=== PATIENT | male | born 2000 | race Caucasian/White ===

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

== ENCOUNTER 2022-05-13 00:11 | Emergency (ER) | payer SELFPAY ==
--- NOTE | ~2022-05-13 | XR_ITS ---
EXAMINATION: XR chest 2V 05/13/2022 00:39 INDICATION: Chest pain PROCEDURE: 2 view chest COMPARISON: 11/19/2018 FINDINGS: The lungs are clear. The cardiomediastinal silhouette is within normal limits. There are no pleural effusions. There is no pneumothorax suspected. IMPRESSION: 1: NO ACUTE CARDIOPULMONARY DISEASE. Reviewed, dictated and finalized at location A.
--- NOTE | 2022-05-13 00:14 | ECG_ITS ---
Measurements Intervals [place] Rate: 100 P: 84 [place]: 122 QRS: 71 QRSD: 86 T: 54 QT: 331 QTc: 428 Interpretive Statements SINUS TACHYCARDIA NONSPECIFIC T-WAVE ABNORMALITY ABNORMAL RHYTHM ECG COMPARED TO ECG 10/29/2019 10:43:05 NO SIGNIFICANT CHANGES Electronically Signed On 05-13-2022 17:55:39 CDT by Ashley Madera M.D.
[2022-05-13 00:20] VITALS: BP 132/67; PULSE 92; RESP 18; TEMP 36.4; O2SAT 100
[2022-05-13 00:32] LABS: Basophils Absolute Auto 0.1 K/mm3 (0.0-0.1); Basophils Percent Auto 0.7 % (0.2-1.2); Eosinophils Absolute Auto 0.2 K/mm3 (0-0.3); Eosinophils Percent Auto 2.4 % (0-4.4); Hematocrit 46.7 % (42.0-52.0); Hemoglobin 16.4 g/dL (14.0-18.0); Immature Granulocyte Absolute 0.02 K/mm3 (0.00-0.031); Immature Granulocyte Percent A 0.3 % (0-0.5); Lymphocytes Absolute Auto 2.41 K/mm3 (0.9-3.2); Lymphocytes Percent Auto 33.6 % (18.3-44.2); Mean Corpuscular HGB Conc 35.1 g/dl (32-36); Mean Corpuscular Hemoglobin 30.2 pg (26-34); Mean Platelet Volume 9.5 fl (7.4-10.4); Monocytes Absolute Auto 0.4 K/mm3 (0.1-0.6); Monocytes Percent Auto 5.7 % (2.6-8.5); Neutrophils Absolute Auto 4.1 K/mm3 (1.3-6.7); Neutrophils Percent Auto 57.3 % (45.5-73.1); Platelet Count Result 244 k/mm3 (150-375); Red Blood Count 5.43 M/mm3 (4.6-6.20); Red Cell Distribution Width 12.1 % (11.5-14.5); White Blood Count 7.2 K/mm3 (4.5-10.0)
[2022-05-13 00:41] LABS: Alanine Aminotransferase 106 U/L (6-50); Alkaline Phosphatase 44 U/L (38-126); Anion Gap 9 mmol/L (8-16); Aspartate Amino Transferase 179 U/L (17-59); Bilirubin,Total 1.3 mg/dL (0.2-1.3); Blood Urea Nitrogen 21 mg/dL (9-20); Calcium 9.5 mg/dL (8.4-10.2); Carbon Dioxide 25 mmol/L (22-30); Chloride 106 mmol/L (98-107); Estimated Glomerular Filt Rate > 60; Glucose 126 mg/dL (65-110); Lipase 81 U/L (23-300); Potassium 3.6 mmol/L (3.4-5.0); Sodium 140 mmol/L (137-145)
[2022-05-13 00:46] LABS: Prothrombin Time 13.1 Seconds (11.1-14.7)
[2022-05-13 00:47] LABS: Partial Thromboplastin Time 35.7 SECONDS (22.3-36.8)
[2022-05-13 00:52] LABS: Troponin I < 0.012 ng/mL (0.000-0.034)
--- NOTE | 2022-05-13 02:46 | ED.CHESTPAIN ---
HPI - Chest Pain General Chief Complaint: Chest Pain Stated Complaint: cp/nv after being stopped by pd Time Seen by Provider: 05/13/22 02:40 History of Present Illness HPI narrative: 22-year-old male presenting to the emergency department for evaluation of epigastric pain. Patient reports he has had persistent nausea vomiting over the course of the last week. Patient states that after he got pulled over he had acute worsening of his epigastric/chest pain. Patient denies any radiation of the pain back neck or arms. Patient denies any prior history of gastritis. Patient denies any previous surgical history. Patient states he does not take a lot of ibuprofen but denies any alcohol intake. Related Data Allergies Allergy/AdvReac Type Severity Reaction Status Date / Time No Known Allergies Allergy Unknown Verified 11/13/21 02:09 Review of Systems Review of Systems: CONSTITUTIONAL: Denies fever, chills, or sweats. EYES: Denies visual changes, redness, or discharge. ENT: Denies rhinorrhea, congestion, sore throat, or otalgia. CARDIOVASCULAR: Denies chest pain, palpitations, or edema. RESPIRATORY: Denies cough or dyspnea. GASTROINTESTINAL: Epigastric abdominal pain with associated nausea and vomiting GENITOURINARY: Denies dysuria or hematuria. SKIN: Denies rash or itching. MUSCULOSKELETAL: Denies back pain, joint pain, or myalgia. NEUROLOGIC: Denies headache, numbness, or weakness. PMFSH Past Medical History Medical History (Updated 05/13/22 @ 04:14 by Lokesh South MD) Arm fracture, left No pertinent past medical history Surgical History Surgical History (Updated 10/29/19 @ 12:22 by Maryann Crooks) No significant past surgical history Family History Family History (Updated 06/11/16 @ 23:19 by DOCTOR UNKNOWN) Father Hypertension Sibling Family history of malignant neoplasm of breast in first degree relative Mother Family history of malignant neoplasm of esophagus Grandparent Family history of type 2 diabetes mellitus Social History Social History Smoking status: Current some day smoker Alcohol intake: current Gender identity (if verbalized by the patient): Male Exam Narrative: APPEARANCE: Well appearing, no pain, no distress, well-nourished. HEAD: normocephalic, atraumatic. EYES: PERRLA/EOMI, conjunctivae clear. NOSE: Normal no drainage EARS:TMS clear with good light reflex. THROAT: Pharynx clear, no exudate. NECK: Supple. No adenopathy, no masses. RESPIRATORY: Airway patent, respirations nonlabored. Clear to auscultation bilaterally, no rales, rhonchi, wheezing. CARDIOVASCULAR: Regular rate and rhythm without murmurs rubs or gallops. ABDOMINAL: Soft, normal bowel sounds, nondistended, mild epigastric tenderness to palpation MUSCULOSKELETAL: Moves all extremities. Strength/ROM intact, No edema, No calf tenderness. NEURO: Alert. Cranial nerves II through XII intact. Grossly intact SKIN: Warm, dry. Normal Color Course Course Emergency Course: Patient is little troponins were negative. Patient EKG showed no evidence of acute STEMI. Chest x-ray showed no acute cardiopulmonary normality. Patient did feel improved with treatment. Patient was discharged to home. Patient was comfortable with the plan for discharge and close follow-up. Suspect epigastric and GI etiology for the patient's symptoms. Vital Signs Vital signs: Vital Signs Temperature 97.5 F L 05/13/22 00:20 Pulse Rate 92 05/13/22 00:20 Respiratory Rate 18 05/13/22 00:20 Blood Pressure 132/67 05/13/22 00:20 Pulse Oximetry 100 05/13/22 00:20 Oxygen Delivery Room Air 05/13/22 00:20 Temperature 97.5 F L 05/13/22 00:20 Pulse Rate 92 05/13/22 00:20 Respiratory Rate 18 05/13/22 00:20 Blood Pressure 132/67 05/13/22 00:20 Pulse Oximetry 100 05/13/22 00:20 Oxygen Delivery Room Air 05/13/22 00:20 MDM - Chest Pain Lab Data Attesta
[2022-05-13 04:04] LABS: Troponin I < 0.012 ng/mL (0.000-0.034)
[2022-05-13] MEDS: BELLADONNA ALK/PHENOB ELIX 10 ML, MAG HYDROX/ALUMINUM HYD/SIMETH 30 ML, LIDOCAINE HCL 2... PO (04:22)
[2022-05-13] MEDS: PANTOPRAZOLE 40 MG TABLET PO (04:23)
[2022-05-13 04:34] VITALS: BP 129/74; PULSE 75; RESP 18; O2SAT 98
== END 2022-05-13 04:37 | disposition home or self-care (01) ==
PROVIDERS: Emergency Provider Emergency Medicine; PCP Family Medicine
DX: R10.13 Epigastric pain (principal); F17.200 Nicotine dependence, unspecified, uncomplicated; R00.0 Tachycardia, unspecified; R94.31 Abnormal electrocardiogram [ECG] [EKG]
CPT/HCPCS: 36415; 71046; 80053; 83690; 84484; 85025; 85610; 85730; 93005; 99284; A9270

== ENCOUNTER 2022-08-12 19:12 | Emergency (ER) | payer SELFPAY ==
--- NOTE | ~2022-08-12 | XR_ITS ---
EXAMINATION: XR chest 2V DATE: 08/12/2022 22:24 INDICATION: Chest pain and epigastric pain. TECHNIQUE: PA and lateral views of the chest were obtained. COMPARISON: Chest radiograph dated 05/13/2022 FINDINGS: The lungs remain clear with no focal airspace opacities, pulmonary edema, pleural effusion or pneumot horax. The cardiomediastinal silhouette is normal. Visualized bones and soft tissues are unremarkable . IMPRESSION: 1. Normal chest radiograph. Reviewed, dictated and finalized at location A. IMPRESSION: 1. Normal chest radiograph.
--- NOTE | ~2022-08-12 | CT_ITS ---
EXAMINATION: CT abdomen pelvis wo con DATE: 08/12/2022 23:13 INDICATION: Lower abdominal pain, nausea TECHNIQUE: Computed tomography (CT) of the abdomen and pelvis was performed without intravenous contr ast. Automated exposure control and iterative reconstruction technique were employed. Exam dose: 593 .38 mGy-cm total exam DLP. COMPARISON: 04/19/2009 CT abdomen pelvis FINDINGS: The lung bases are clear. Normal heart size. No pericardial or pleural effusion. Liver, spleen, pancreas, and adrenal glands and kidneys are unremarkable. The gallbladder is contract ed. No bile duct or pancreatic duct dilatation. No urinary tract calculus or hydroureteronephrosis. The urinary bladder and prostate gland are unrema rkable. Normal caliber of the abdominal aorta. No intraperitoneal or retroperitoneal or pelvic mass lesion or adenopathy or ascites. Normal appendix. No bowel obstruction, bowel wall thickening, pneumatosis or intraperitoneal free air . There are multiple nonenlarged mesenteric lymph nodes which may be due to mesenteric lymphadenitis. Included, skeletal structures are unremarkable. IMPRESSION: Multiple nonenlarged mesenteric lymph nodes, which may be due to mesenteric lymphadeniti s Normal appendix Reviewed, dictated and finalized at Location A. Reviewed, dictated and finalized at location A. IMPRESSION: Multiple nonenlarged mesenteric lymph nodes, which may be due to m esenteric lymphadenitis Normal appendix
[2022-08-12 19:26] VITALS: BP 122/53; PULSE 68; RESP 16; TEMP 35.8; O2SAT 99
--- NOTE | 2022-08-12 21:35 | ECG_ITS ---
Measurements Intervals [place] Rate: 63 P: 66 [place]: 117 QRS: 67 QRSD: 90 T: 50 QT: 418 QTc: 431 Interpretive Statements SINUS RHYTHM WITH MARKED SINUS ARRHYTHMIA WITH SHORT [place] INTERVAL BASELINE WANDER- V3 BORDERLINE ECG COMPARED TO ECG 05/13/2022 00:19:01 SINUS RHYTHM NOW PRESENT SINUS ARRHYTHMIA NOW PRESENT Electronically Signed On 08-13-2022 7:07:26 CDT by Austin Whipple D.O.
--- NOTE | 2022-08-12 21:48 | ED.ABDPAIN ---
HPI - Abdominal Pain General Chief Complaint: Abdominal Pain Stated Complaint: ABD PAIN AFTER ARREST Time Seen by Provider: 08/12/22 21:15 History of Present Illness HPI narrative: Patient is a 22-year-old male here for evaluation of abdominal pain and chest pain. Patient states the pain is lower in nature, is crampy, rated as a 10 out of 10. He has not attempted any medication for his pain. Additionally noting any chest pain and shortness of breath for the past 3 hours. Noted that patient's symptoms came on after he was arrested today. His last bowel movement was yesterday and he states that it was liquidy but nonbloody. He denies any nausea, vomiting, fevers, leg swelling. Denies history of similar pain in the past. Related Data Allergies Allergy/AdvReac Type Severity Reaction Status Date / Time No Known Allergies Allergy Unknown Verified 11/13/21 02:09 Review of Systems Review of Systems: Gen: Denies fevers or chills Eyes: Denies eye pain or visual change ENT: Denies congestion Respiratory: Denies shortness of breath or cough CV: Reports chest pain. GI: Reports abdominal pain. Denies nausea, emesis or diarrhea : denies burning, urgency, frequency or hematuria Musculoskeletal: Denies back pain or muscle pain Neuro: Denies numbness, tingling, weakness or focal weakness Skin: Denies rash Except as documented, all other systems reviewed and negative PMFSH Past Medical History Medical History (Updated 08/12/22 @ 23:51 by Yvonne Black PA-C) Arm fracture, left No pertinent past medical history Surgical History Surgical History No significant past surgical history Family History Family History (Updated 06/11/16 @ 23:19 by DOCTOR UNKNOWN) Father Hypertension Sibling Family history of malignant neoplasm of breast in first degree relative Mother Family history of malignant neoplasm of esophagus Grandparent Family history of type 2 diabetes mellitus Social History Social History Smoking status: Current some day smoker Alcohol intake: current Gender identity (if verbalized by the patient): Male Exam Narrative: APPEARANCE: Well appearing, no pain in distress, well-nourished. Head: Normocephalic and atraumatic. EYES: PERRLA/EOMI, conjunctivae clear NOSE: No nasal drainage EARS: External ear normal in appearance THROAT: Oropharynx is clear. Mucous membranes are moist. NECK: Supple. No adenopathy, no masses. RESPIRATORY: Airway patent, respirations nonlabored. Clear to auscultation bilaterally, no rales, rhonchi, wheezing. CARDIOVASCULAR: tender to palpation over chest wall. Regular rate and rhythm without murmurs, rubs, or gallops. ABDOMINAL: Tender to palpation in lower abdomen. Normoactive bowel sounds. Soft, nondistended. No rebound tenderness or guarding. MUSCULOSKELETAL: Extremities are warm and well-perfused. Moves all extremities well. No edema. NEURO: Normal speech. No focal neurologic deficits. SKIN: Skin is warm and dry. No rashes. PSYCHIATRIC: Normal affect/mood. Course Vital Signs Vital signs: Vital Signs Temperature 96.5 F L 08/12/22 19:26 Pulse Rate 68 08/12/22 19:26 Respiratory Rate 16 08/12/22 19:26 Blood Pressure 122/53 L 08/12/22 19:26 Pulse Oximetry 99 08/12/22 19:26 Temperature 96.5 F L 08/12/22 19:26 Pulse Rate 90 08/13/22 00:17 Respiratory Rate 18 08/13/22 00:17 Blood Pressure 125/62 08/13/22 00:30 Pulse Oximetry 100 08/13/22 00:30 MDM - Abdominal Pain MDM Narrative Medical decision making narrative: Patient is a 22 year old male here for evaluation of chest pain x 4 hours and abdominal pain x 3 days. Here, he is non-toxic appearing with normal vital signs. He is tender to palpation in his lower abdomen and his upper chest wall. EKG and troponin non-ischemic. CXR clear. Lipase nl. No leukocytosis or
[2022-08-12 21:52] LABS: Basophils Absolute Auto 0.1 K/mm3 (0.0-0.1); Basophils Percent Auto 1.2 % (0.2-1.2); Eosinophils Absolute Auto 0.2 K/mm3 (0-0.3); Eosinophils Percent Auto 3.1 % (0-4.4); Hematocrit 45.6 % (42.0-52.0); Hemoglobin 15.6 g/dL (14.0-18.0); Immature Granulocyte Absolute 0.02 K/mm3 (0.00-0.031); Immature Granulocyte Percent A 0.3 % (0-0.5); Lymphocytes Absolute Auto 1.97 K/mm3 (0.9-3.2); Lymphocytes Percent Auto 33.5 % (18.3-44.2); Mean Corpuscular HGB Conc 34.2 g/dl (32-36); Mean Corpuscular Hemoglobin 30.7 pg (26-34); Mean Corpuscular Volume 89.8 fl (80-100); Mean Platelet Volume 9.3 fl (7.4-10.4); Monocytes Absolute Auto 0.4 K/mm3 (0.1-0.6); Monocytes Percent Auto 7.1 % (2.6-8.5); Neutrophils Absolute Auto 3.2 K/mm3 (1.3-6.7); Neutrophils Percent Auto 54.8 % (45.5-73.1); Platelet Count Result 223 k/mm3 (150-375); Red Blood Count 5.08 M/mm3 (4.6-6.20); Red Cell Distribution Width 12.1 % (11.5-14.5); White Blood Count 5.9 K/mm3 (4.5-10.0)
[2022-08-12 22:03] LABS: Alanine Aminotransferase 58 U/L (6-50); Albumin Level 4.4 g/dL (3.5-5.1); Alkaline Phosphatase 42 U/L (38-126); Anion Gap 12 mmol/L (8-16); Aspartate Amino Transferase 46 U/L (17-59); Bilirubin,Total 1.5 mg/dL (0.2-1.3); Blood Urea Nitrogen 19 mg/dL (9-20); Carbon Dioxide 29 mmol/L (22-30); Chloride 101 mmol/L (98-107); Estimated CRCL calculation 113 ml/min; Estimated Glomerular Filt Rate > 60; Glucose 92 mg/dL (65-110); Lipase 60 U/L (23-300); Potassium 3.9 mmol/L (3.4-5.0); Sodium 142 mmol/L (137-145)
[2022-08-12 22:14] LABS: Troponin I < 0.012 ng/mL (0.000-0.034)
[2022-08-12] MEDS: BELLADONNA ALK/PHENOB ELIX 10 ML, MAG HYDROX/ALUMINUM HYD/SIMETH 30 ML, LIDOCAINE HCL 2... PO (23:55)
[2022-08-13 00:17] VITALS: PULSE 90; RESP 18; O2SAT 100
[2022-08-13 00:30] VITALS: BP 125/62; O2SAT 100
== END 2022-08-13 00:43 ==
PROVIDERS: Physician Assistant; Emergency Provider Emergency Medicine; PCP Family Medicine
DX: R07.89 Other chest pain (principal); F17.200 Nicotine dependence, unspecified, uncomplicated; R94.31 Abnormal electrocardiogram [ECG] [EKG]
CPT/HCPCS: 36415; 71046; 74176; 80053; 83690; 84484; 85025; 93005; 99284; A9270

== ENCOUNTER 2023-03-23 09:07 | Emergency (ER) | payer MEDICAID, SELFPAY ==
--- NOTE | ~2023-03-23 | CT_ITS ---
EXAMINATION: CT cervical spine wo con DATE: 03/23/2023 09:39 INDICATION: Head injury TECHNIQUE: Computed tomography (CT) of the cervical spine was performed without intravenous contrast. Automated exposure control and iterative reconstruction technique were employed. The dose-length pro duct was 484.83 mGy-cm. COMPARISON: None FINDINGS: Likely positional straightening of the normal cervical lordosis. No spondylolisthesis or facet sublux ation. Vertebral body and disc heights are normal. Multilevel mild bilateral cervical uncovertebral o steoarthritis. Contributes to minimal neural foraminal stenosis on the bilaterally at C3-C4 and on th e left at C4-C5. No central canal stenosis. Mild cervical facet osteoarthritis on the right at C2-C3 with minimal facet osteoarthritis at a few additional cervical levels on the left and right. Cervical soft tissues are unremarkable. Bilateral apices of lungs are clear. IMPRESSION: 1. Minimal to mild cervical facet and uncovertebral osteoarthritis. No acute osseous abnormality . Reviewed, dictated and finalized at location A. IMPRESSION: 1. Minimal to mild cervical facet and uncovertebral osteoarthritis. No acute os seous abnormality .
--- NOTE | ~2023-03-23 | CT_ITS ---
EXAMINATION: CT BRAIN W/O DATE: 03/23/2023 09:39 INDICATION: Head injury. TECHNIQUE: Computed tomography (CT) of the head was performed without intravenous contrast. The dose- length product was 605.33 mGy-cm. Automated exposure control and iterative reconstruction technique w ere employed. COMPARISON: CT dated 07/12/2019 FINDINGS: Normal brain parenchymal volume for age. Normal marquez-white differentiation. No acute intrac ranial hemorrhage, infarction, mass or mass effect. No ventriculomegaly or midline shift. Midline sagittal images demonstrate a normal corpus callosum, c raniovertebral junction and sella turcica. Basilar cisterns are patent. Paranasal sinuses and mastoids are pneumatized. No depressed skull fractures. IMPRESSION: 1. No acute intracranial abnormality. Reviewed, dictated and finalized at location B.
[2023-03-23 09:12] VITALS: BP 153/80; PULSE 107; RESP 18; TEMP 36.4; O2SAT 98
[2023-03-23 09:21] VITALS: BP 153/80; PULSE 107; RESP 18; TEMP 36.4; O2SAT 98
--- NOTE | 2023-03-23 09:22 | ED.GENADULT ---
HPI - General Adult General Chief complaint: Head Injury Stated complaint: tackled by police Time Seen by Provider: 03/23/23 09:08 History of Present Illness HPI narrative: 23-year-old male presents emergency room in custody of law enforcement for evaluation of a head injury. Patient was deviating law enforcement and was eventually detained. In the process of being detained. Patient struck his head on the ground. Denies any LOC or altered mental status. Denies any nausea or vomiting. Denies spine tenderness. On arrival, patient is able to respond to questions appropriately. No other injuries. Related Data Allergies Allergy/AdvReac Type Severity Reaction Status Date / Time No Known Allergies Allergy Unknown Verified 03/23/23 09:18 Review of Systems Review of Systems: CONSTITUTIONAL: Denies fever, chills, or sweats. EYES: Denies visual changes, redness, or discharge. ENT: Denies rhinorrhea, congestion, sore throat, or otalgia. CARDIOVASCULAR: Denies chest pain, palpitations, or edema. RESPIRATORY: Denies cough or dyspnea. GASTROINTESTINAL: Denies abdominal pain, nausea, vomiting, or diarrhea. GENITOURINARY: Denies dysuria or hematuria. SKIN: Denies rash or itching. MUSCULOSKELETAL: Denies back pain, joint pain, or myalgia. NEUROLOGIC: Denies headache, numbness, dizziness, or weakness. PSYCHIATRIC: Denies anxiety or depression. PMFSH Past Medical History Medical History Arm fracture, left No pertinent past medical history Surgical History Surgical History No significant past surgical history Family History Family History Father Hypertension Sibling Family history of malignant neoplasm of breast in first degree relative Mother Family history of malignant neoplasm of esophagus Grandparent Family history of type 2 diabetes mellitus Social History Social History Smoking status: Current some day smoker Alcohol intake: current Gender identity (if verbalized by the patient): Male Exam Narrative: GENERAL: Well-appearing, well-nourished, no physical limitations, and in no acute distress. HEAD: Normocephalic, atraumatic. Tenderness to the forehead EYES: Conjunctivae normal, PERRLA and EOMI. ENT: External nose normal, Nares clear, no rhinorrhea or epistaxis. Mucous membranes moist. Oropharynx without tonsillar hypertrophy exudate or other lesions. External ears normal, bilateral TMs normal bilaterally NECK: Supple. CHEST: Clear to auscultation. No respiratory distress. No wheezes rales or rhonchi. No tenderness. HEART: Regular rate and rhythm. No murmur heard. Normal peripheral pulses. BACK: No cervical tenderness, step-offs, bony abnormality; FROM EXTREMITIES: Normal range of motion. No edema. No clubbing or cyanosis SKIN: Warm, dry, no rash. No noted wounds NEURO: No focal deficits. Alert and oriented x3. MAEW. CN's II-XI intact bilaterally, normal gait PSYCH: Cooperative. Normal mood and affect. Course Vital Signs Vital signs: Vital Signs Temperature 36.4 C 03/23/23 09:12 Pulse Rate 107 H 03/23/23 09:12 Respiratory Rate 18 03/23/23 09:12 Blood Pressure 153/80 H 03/23/23 09:12 Pulse Oximetry 98 03/23/23 09:12 Oxygen Delivery Room Air 03/23/23 09:12 Temperature 36.4 C 03/23/23 09:21 Pulse Rate 107 H 03/23/23 09:21 Respiratory Rate 18 03/23/23 09:21 Blood Pressure 153/80 H 03/23/23 09:21 Pulse Oximetry 98 03/23/23 09:21 Oxygen Delivery Room Air 03/23/23 09:12 Medical Decision Making Vital Signs Vital Signs: Vital Signs Temperature 36.4 C 03/23/23 09:12 Pulse Rate 107 H 03/23/23 09:12 Respiratory Rate 18 03/23/23 09:12 Blood Pressure 153/80 H 03/23/23 09:12 Pulse Oximetry 98 03/23/23 09:12 Oxygen De
[2023-03-23 10:24] VITALS: BP 172/67; PULSE 106; RESP 18; O2SAT 100
== END 2023-03-23 10:27 ==
PROVIDERS: Emergency Provider Nurse Practitioner Family; PCP Family Medicine
DX: S09.90XA Unspecified injury of head, initial encounter (principal); F17.200 Nicotine dependence, unspecified, uncomplicated; Y35.813A Legal intervention involving manhandling, suspect injured, initial encounter; M47.812 Spondylosis without myelopathy or radiculopathy, cervical region
CPT/HCPCS: 70450; 72125; 99284

== ENCOUNTER 2023-08-11 23:12 | Emergency (ER) | payer OTHER, SELFPAY ==
[2023-08-11 23:13] VITALS: BP 103/52; PULSE 79; RESP 18; TEMP 36.2; O2SAT 99
== END 2023-08-12 01:51 | disposition left against medical advice (07) ==
PROVIDERS: PCP Family Medicine
DX: K04.7 Periapical abscess without sinus (principal)
CPT/HCPCS: 99199

== ENCOUNTER 2023-08-12 14:37 | Emergency (ER) | payer OTHER, SELFPAY ==
[2023-08-12 14:50] VITALS: BP 134/77; PULSE 121; RESP 18; TEMP 36.6; O2SAT 100
--- NOTE | 2023-08-12 15:06 | ED.DENTAL ---
HPI - Dental/Oral General Chief complaint: Dental/Oral Stated complaint: mouth pain Time Seen by Provider: 08/12/23 15:10 Source: patient, RN notes reviewed and old records reviewed Mode of arrival: ambulatory Limitations: no limitations History of Present Illness HPI Narrative: 23-year-old male presents to the [facility] with complaints of mouth pain and redness and swelling to the left dorsal aspect of foot. States able started a couple of days ago. No treatment prior to arrival Related Data Allergies Allergy/AdvReac Type Severity Reaction Status Date / Time No Known Allergies Allergy Unknown Verified 03/23/23 09:18 Review of Systems Review of Systems: All systems reviewed & are unremarkable except as noted in HPI and below Constitutional: Constitutional: Reports no additional constitutional complaints Eyes: Eyes: Reports no additional eye complaints ENT: Reports as per HPI and Reports dental pain Cardiovascular: Cardiovascular: Reports no additional cardiovascular complaints, Denies chest pain and Denies dyspnea Respiratory: Respiratory: Reports no additional respiratory complaints, Denies chest congestion, Denies cough and Denies dyspnea Gastrointestinal: Gastrointestinal: Reports no additional gastrointestinal complaints, Denies abdominal pain, Denies nausea and Denies vomiting Musculoskeletal: Musculoskeletal: Reports no additional musculoskeletal complaints Integumentary/Breasts: Skin/Breast: Reports as per HPI Neurologic: Reports system reviewed and no additional complaints, except as documented Psychiatric: Psychiatric: Reports no additional psychiatric complaints Allergic/Immunologic: Allergic/Immunologic: Reports no additional allergic/immunologic complaints [facility] Past Medical History Medical History Arm fracture, left No pertinent past medical history Surgical History Surgical History No significant past surgical history Family History Family History Father Hypertension Sibling Family history of malignant neoplasm of breast in first degree relative Mother Family history of malignant neoplasm of esophagus Grandparent Family history of type 2 diabetes mellitus Social History Social History Smoking status: Current some day smoker Alcohol intake: current Gender identity (if verbalized by the patient): Male Comments At the time of my signature, I reviewed and agree with the nursing past medical, surgical, social, and family history. There is no relevant family history pertinent to the patient complaint. Exam Const: General: cooperative, healthy appearing, comfortable, no acute distress, well developed, alert, poor hygiene and well nourished Nutritional Appearance: well nourished Orientation/consciousness: patient oriented x3 Limitations: no limitations HENMT: Head: normal to inspection Ears: hearing grossly normal bilaterally and external ears normal Face/Nose/Sinus: Normal external nose present, Normal nares present, Normal nasal mucous membranes and turbinates present, normal facial exam and face symmetric Face and sinus: normal facial exam and face symmetric Mouth: Yes Normal oral and palatal mucosa present, Yes lip normal and Yes moist mucous membranes Teeth and gingiva: abnormal tooth and associated gingiva (Right lower gingiva mild swelling noted posterior molars with increased shayne) and fair dentition Throat: posterior oropharynx normal and uvula midline Eyes: General: appearance normal, both eyes and all related structures Alignment and Position: alignment normal Periorbital: periorbital findings normal Pupils: Equal, round and reactive pupils present EOM: EOMs intact bilaterally Neck: Neck: normal visual inspection, full ROM, no lymphadenopathy and no me
== END 2023-08-12 15:28 | disposition home or self-care (01) ==
PROVIDERS: Emergency Provider Nurse Practitioner; PCP Family Medicine
DX: K04.7 Periapical abscess without sinus (principal); L03.116 Cellulitis of left lower limb; F17.210 Nicotine dependence, cigarettes, uncomplicated
CPT/HCPCS: 99213; G0463

== ENCOUNTER 2024-06-22 20:18 | Emergency (ER) | payer OTHER, SELFPAY ==
[2024-06-22 20:22] VITALS: BP 164/106; PULSE 61; RESP 18; TEMP 36.5; O2SAT 100
--- NOTE | 2024-06-22 20:36 | ED.DENTAL ---
HPI - Dental/Oral General Chief complaint: Dental/Oral Stated complaint: Right sided dental/mouth pain Time Seen by Provider: 06/22/24 20:36 History of Present Illness HPI Narrative: patient has noticed a possible cracked tooth and dental pain right upper tooth ongoing for last few days, has tried taking some ibuprofen without much relief. No systemic symptoms Related Data Allergies Allergy/AdvReac Type Severity Reaction Status Date / Time No Known Allergies Allergy Unknown Verified 06/22/24 20:25 Review of Systems Review of Systems: All systems reviewed & are unremarkable except as noted in HPI and below PMFSH Past Medical History Medical History Arm fracture, left No pertinent past medical history Surgical History Surgical History No significant past surgical history Family History Family History Father Hypertension Sibling Family history of malignant neoplasm of breast in first degree relative Mother Family history of malignant neoplasm of esophagus Grandparent Family history of type 2 diabetes mellitus Social History Social History Smoking status: Current some day smoker Alcohol intake: current Gender identity (if verbalized by the patient): Male Exam Narrative: EXAMINATION OF ORGAN SYSTEMS/BODY AREAS: Constitutional: Vital signs per nursing GENERAL:[No acute distress, non-toxic appearing.] HEAD: Normal with no signs of head trauma. EYES: EOMI, conjunctiva normal ENT: tenderness and dental caries, worse to the right premolar LUNGS: Nonlabored breathing. HEART: [Regular rate and rhythm] ABD: [Soft], [nontender to palpation] EXT: Normal range of motion SKIN: [No rashes or lesions.] NEURO: [Alert and oriented x 3. No gross focal sensory or strength deficits.] PSYCH: Normal affect Course Vital Signs Vital signs: Vital Signs Temperature 97.7 F 06/22/24 20:22 Pulse Rate 61 06/22/24 20:22 Respiratory Rate 18 06/22/24 20:22 Blood Pressure 164/106 H 06/22/24 20:22 Pulse Oximetry 100 06/22/24 20:22 Oxygen Delivery Room Air 06/22/24 20:22 Temperature 97.7 F 06/22/24 20:22 Pulse Rate 61 06/22/24 20:22 Respiratory Rate 18 06/22/24 20:22 Blood Pressure 164/106 H 06/22/24 20:22 Pulse Oximetry 100 06/22/24 20:22 Oxygen Delivery Room Air 06/22/24 20:22 MDM - Dental/Oral MDM Narrative Medical decision making narrative: ED COURSE AND MEDICAL DECISION MAKING: Patient with worsening dental pain and dental decay. No palpable abscess. No systemic signs or symptoms. Analgesics and antibiotics administered. Follow-up instructions given for dental/oral surgery clinics. Patient was given return precautions and discharged home in stable condition. Discharge Plan Discharge Clinical Impression: Toothache, Fracture of tooth Patient Disposition: Home, Self-Care Condition: Stable Instructions: Antibiotic Form, Toothache (ED) Additional Instructions: Please follow up with your dentist; take the antibiotics as prescribed, continue taking ibuprofen, and you can return if things worsen. Prescriptions: New amoxicillin 500 mg capsule 500 mg PO Q8H 7 Days Qty: 21 0RF No Action clindamycin HCl 300 mg capsule 300 mg PO Q6H 10 Days Qty: 40 0RF Follow-up/Referrals: Rehan Silveira MD [Primary Care Provider] -
[2024-06-22] MEDS: AMOXICILLIN 500 MG CAPSULE PO (20:58)
[2024-06-22] MEDS: KETOROLAC 30 MG/ML VIAL (*BKC) 15 MG IM (20:59)
== END 2024-06-22 21:38 | disposition home or self-care (01) ==
PROVIDERS: Emergency Provider Emergency Medicine; PCP Family Medicine
DX: K03.81 Cracked tooth (principal); K02.9 Dental caries, unspecified; F17.200 Nicotine dependence, unspecified, uncomplicated
CPT/HCPCS: 96372; 99283; A9270; J1885